=== PATIENT | male | born 1990 | race Caucasian/White ===

== ENCOUNTER 2022-10-10 13:24 | Inpatient (IN) | payer OTHER ==
[~2022-10-10] VITALS: Ht 175.3 cm; Wt 115.7 kg
[2022-10-11 15:00] VITALS: BP 125/69; PULSE 89; RESP 19; RESP 20; TEMP 98.7; O2SAT 98
[2022-10-11] MEDS ORDERED: ACETAMINOPHEN 325 MG TABLET PO PRN (15:00)
[2022-10-11] MEDS ORDERED: OxyCODONE HCL 5 MG IR TABLET PO PRN (15:15)
[2022-10-11] MEDS: GABAPENTIN 300 MG CAPSULE PO SCH ×2 (18:50→21:47)
[2022-10-11] MEDS: MINOCYCLINE HCL 100 MG CAPSULE PO SCH (18:50)
[2022-10-11] MEDS: ACETAMINOPHEN 325 MG TABLET PO SCH (18:53)
[2022-10-11 21:00] VITALS: BP 116/82; PULSE 99; RESP 16; TEMP 98.7; O2SAT 96
[2022-10-11] MEDS: MELATONIN 3 MG TABLET PO PRN (21:47)
[2022-10-11] MEDS: ETHYL ALCOHOL 62% ANTISEPTIC NASAL SANITIZER 0.6 ML AMPUL NASAL SCH (21:47)
[2022-10-11] MEDS: DOCUSATE SODIUM 100 MG CAPSULE PO SCH (21:47)
[2022-10-11 21:55] VITALS: O2SAT 96
[2022-10-12] MEDS: ACETAMINOPHEN 325 MG TABLET PO SCH ×4 (05:25→16:08)
[2022-10-12] MEDS: DOCUSATE SODIUM 100 MG CAPSULE PO SCH ×3 (08:56→21:00)
[2022-10-12] MEDS: ASPIRIN 325 MG TABLET PO SCH (08:56)
[2022-10-12] MEDS: ENOXAPARIN SODIUM 40 MG/0.4 ML PF SYRINGE SQ SCH (08:56)
[2022-10-12] MEDS: GABAPENTIN 300 MG CAPSULE PO SCH ×3 (08:57→20:51)
[2022-10-12] MEDS: MINOCYCLINE HCL 100 MG CAPSULE PO SCH ×2 (08:57→16:07)
[2022-10-12] MEDS: ETHYL ALCOHOL 62% ANTISEPTIC NASAL SANITIZER 0.6 ML AMPUL NASAL SCH ×2 (08:57→20:50)
[2022-10-12] MEDS: AQUAPHOR OINTMENT 50 GM TUBE TP SCH (08:58)
[2022-10-12 09:08] LABS: BASOPHILS % (AUTO) 0.4 % (0.0-2.0); EOSINOPHILS % (AUTO) 2.6 % (1.0-6.0); HEMATOCRIT 37.2 % (41-53); HEMOGLOBIN 12.5 g/dL (13.5-17.5); LYMPHOCYTES # (AUTO) 1.4 K/uL (1.0-4.8); LYMPHOCYTES % (AUTO) 17.3 % (22.0-44.0); MEAN CORPUSCULAR HEMOGLOBIN 31.1 pg (26.0-34.0); MEAN CORPUSCULAR HGB CONC 33.6 G/dL (31.0-37.0); MEAN CORPUSCULAR VOLUME 93 fL (80-100); MONOCYTES # (AUTO) 0.4 K/uL (0.1-1.0); MONOCYTES % (AUTO) 4.7 % (2.0-9.0); NEUTROPHILS # (AUTO) 6.1 K/uL (1.8-7.7); PLATELET COUNT (AUTO) 416 K/uL (150-450); RED BLOOD CELL COUNT(AUTO) 4.02 MIL/uL (4.50-5.90); RED CELL DISTRIBUTION WIDTH 13.7 % (11.5-14.5)
[2022-10-12 09:32] LABS: ALANINE AMINOTRANSFERASE 29 U/L (12-78); ALBUMIN 2.9 g/dL (3.4-5.0); ALKALINE PHOSPHATASE 86 U/L (46-116); ANION GAP 16 mmol/L (8-16); ASPARTATE AMINOTRANSFERASE 32 U/L (15-37); BILIRUBIN,TOTAL 0.9 mg/dL (0.1-1.0); CALCIUM, TOTAL 9.3 mg/dL (8.8-10.5); CARBON DIOXIDE 23 mmol/L (22-29); CHLORIDE 100 mmol/L (98-107); CREATININE 0.92 mg/dL (0.60-1.30); GLOMERULAR FILTR. RATE CALC > 60 mL/min (>60); GLUCOSE,RANDOM 167 mg/dL (70-110); SODIUM SERUM 139 mmol/L (136-145); TOTAL PROTEIN, SERUM 7.2 g/dL (6.4-8.2)
[2022-10-12 09:44] VITALS: BP 103/63; PULSE 98; RESP 20; TEMP 98.3; O2SAT 98
[2022-10-12] MEDS: MELATONIN 3 MG TABLET PO PRN (20:51)
[2022-10-12 21:00] VITALS: BP 126/66; PULSE 95; RESP 19; TEMP 98.3; O2SAT 97
[2022-10-13] MEDS: ACETAMINOPHEN 325 MG TABLET PO SCH ×5 (00:27→23:33)
[2022-10-13] MEDS: MINOCYCLINE HCL 100 MG CAPSULE PO SCH ×2 (07:38→16:07)
[2022-10-13 09:02] VITALS: BP 125/77; PULSE 84; RESP 19; TEMP 97.8; O2SAT 98
[2022-10-13] MEDS: MULTIVITAMINS WITH MINERALS, THERAPEUTIC TABLET PO SCH (09:02)
[2022-10-13] MEDS: ASPIRIN 325 MG TABLET PO SCH (09:02)
[2022-10-13] MEDS: ENOXAPARIN SODIUM 40 MG/0.4 ML PF SYRINGE SQ SCH (09:02)
[2022-10-13] MEDS: AQUAPHOR OINTMENT 50 GM TUBE TP SCH (09:02)
[2022-10-13] MEDS: GABAPENTIN 300 MG CAPSULE PO SCH ×3 (09:02→21:55)
[2022-10-13] MEDS: ETHYL ALCOHOL 62% ANTISEPTIC NASAL SANITIZER 0.6 ML AMPUL NASAL SCH ×2 (09:03→21:54)
[2022-10-13 21:00] VITALS: BP 120/74; PULSE 90; RESP 20; TEMP 98.3; O2SAT 99
[2022-10-13] MEDS: DOCUSATE SODIUM 100 MG CAPSULE PO SCH (21:55)
[2022-10-14] MEDS: MELATONIN 3 MG TABLET PO PRN ×2 (00:16→21:30)
[2022-10-14] MEDS ORDERED: ASPI-989 PO (03:57)
[2022-10-14] MEDS ORDERED: GABA-1181 PO (03:57)
[2022-10-14] MEDS ORDERED: MULT-1239 PO (03:57)
[2022-10-14] MEDS: ACETAMINOPHEN 325 MG TABLET PO SCH ×3 (06:56→17:51)
[2022-10-14] MEDS: MINOCYCLINE HCL 100 MG CAPSULE PO SCH ×2 (07:42→17:51)
[2022-10-14] MEDS: DOCUSATE SODIUM 100 MG CAPSULE PO SCH ×2 (09:45→21:29)
[2022-10-14] MEDS: MULTIVITAMINS WITH MINERALS, THERAPEUTIC TABLET PO SCH (09:45)
[2022-10-14] MEDS: ENOXAPARIN SODIUM 40 MG/0.4 ML PF SYRINGE SQ SCH (09:45)
[2022-10-14] MEDS: ASPIRIN 325 MG TABLET PO SCH (09:45)
[2022-10-14 09:46] VITALS: BP 119/64; PULSE 77; RESP 19; TEMP 98.4; O2SAT 97
[2022-10-14] MEDS: GABAPENTIN 300 MG CAPSULE PO SCH ×3 (09:46→21:29)
[2022-10-14] MEDS: AQUAPHOR OINTMENT 50 GM TUBE TP SCH (09:46)
[2022-10-14] MEDS: ETHYL ALCOHOL 62% ANTISEPTIC NASAL SANITIZER 0.6 ML AMPUL NASAL SCH ×2 (09:47→21:29)
[2022-10-14 20:04] LABS: BASOPHILS % (AUTO) 0.6 % (0.0-2.0); EOSINOPHILS % (AUTO) 3.3 % (1.0-6.0); HEMATOCRIT 38.8 % (41-53); HEMOGLOBIN 13.1 g/dL (13.5-17.5); LYMPHOCYTES # (AUTO) 2.1 K/uL (1.0-4.8); LYMPHOCYTES % (AUTO) 23.6 % (22.0-44.0); MEAN CORPUSCULAR HEMOGLOBIN 30.9 pg (26.0-34.0); MEAN CORPUSCULAR HGB CONC 33.7 G/dL (31.0-37.0); MEAN CORPUSCULAR VOLUME 92 fL (80-100); MONOCYTES # (AUTO) 0.7 K/uL (0.1-1.0); MONOCYTES % (AUTO) 7.8 % (2.0-9.0); NEUTROPHILS # (AUTO) 5.7 K/uL (1.8-7.7); NEUTROPHILS % (AUTO) 64.7 % (40.0-70.0); PLATELET COUNT (AUTO) 479 K/uL (150-450); RED BLOOD CELL COUNT(AUTO) 4.23 MIL/uL (4.50-5.90); RED CELL DISTRIBUTION WIDTH 13.2 % (11.5-14.5)
[2022-10-14 20:48] LABS: ANION GAP 9 mmol/L (8-16); CALCIUM, TOTAL 9.1 mg/dL (8.8-10.5); CARBON DIOXIDE 23 mmol/L (22-29); CHLORIDE 102 mmol/L (98-107); CREATININE 1.01 mg/dL (0.60-1.30); GLOMERULAR FILTR. RATE CALC > 60 mL/min (>60); GLUCOSE,RANDOM 137 mg/dL (70-110); POTASSIUM 3.4 mmol/L (3.5-5.1); SODIUM SERUM 134 mmol/L (136-145)
[2022-10-14 20:53] LABS: ALANINE AMINOTRANSFERASE 34 U/L (12-78); ALBUMIN 3.2 g/dL (3.4-5.0); ALKALINE PHOSPHATASE 92 U/L (46-116); ASPARTATE AMINOTRANSFERASE 30 U/L (15-37); BILIRUBIN,TOTAL 0.5 mg/dL (0.1-1.0); TOTAL PROTEIN, SERUM 7.5 g/dL (6.4-8.2)
[2022-10-14] MEDS ORDERED: POTASSIUM CHLORIDE 20 MEQ ER TABLET PO ONE (21:00)
[2022-10-14] MEDS: FAMOTIDINE 20 MG TABLET PO SCH (21:29)
[2022-10-15 01:00] LABS: APPEARANCE,URINE CLEAR (CLEAR); BILIRUBIN,URINE NEGATIVE (NEGATIVE); GLUCOSE, URINE (UA) NEGATIVE (NEGATIVE); KETONES,URINE NEGATIVE (NEGATIVE); LEUKOCYTE ESTERASE ,URINE NEGATIVE (NEGATIVE); NITRATE,URINE NEGATIVE (NEGATIVE); OCCULT BLOOD,URINE LARGE (NEGATIVE); PROTEIN,URINE NEGATIVE (NEGATIVE); UROBILINOGEN,URINE <=1.0 mg/dL (<=1.0)
[2022-10-15 01:12] LABS: BACTERIA,URINE None Seen /HPF (None Seen); SQUAMOUS EPITHELIAL CELL,UR None Seen /LPF (None Seen); WBC,URINE None Seen /HPF (0-5)
[2022-10-15 02:36] VITALS: BP 132/73; PULSE 94; RESP 18; TEMP 98.9; O2SAT 97
[2022-10-15] MEDS: ACETAMINOPHEN 325 MG TABLET PO SCH ×4 (05:20→17:17)
[2022-10-15] MEDS: FAMOTIDINE 20 MG TABLET PO SCH ×2 (07:58→20:31)
[2022-10-15] MEDS: DOCUSATE SODIUM 100 MG CAPSULE PO SCH ×2 (07:58→20:31)
[2022-10-15] MEDS: ASPIRIN 325 MG TABLET PO SCH (07:58)
[2022-10-15] MEDS: ENOXAPARIN SODIUM 40 MG/0.4 ML PF SYRINGE SQ SCH (07:58)
[2022-10-15] MEDS: MULTIVITAMINS WITH MINERALS, THERAPEUTIC TABLET PO SCH (07:59)
[2022-10-15] MEDS: MINOCYCLINE HCL 100 MG CAPSULE PO SCH ×2 (07:59→16:18)
[2022-10-15] MEDS: GABAPENTIN 300 MG CAPSULE PO SCH ×3 (07:59→20:31)
[2022-10-15] MEDS: ETHYL ALCOHOL 62% ANTISEPTIC NASAL SANITIZER 0.6 ML AMPUL NASAL SCH ×2 (07:59→20:31)
[2022-10-15] MEDS: AQUAPHOR OINTMENT 50 GM TUBE TP SCH (08:02)
[2022-10-15 08:54] LABS: BASOPHILS % (AUTO) 0.5 % (0.0-2.0); EOSINOPHILS % (AUTO) 4.4 % (1.0-6.0); HEMATOCRIT 37.8 % (41-53); HEMOGLOBIN 12.4 g/dL (13.5-17.5); LYMPHOCYTES % (AUTO) 28.2 % (22.0-44.0); MEAN CORPUSCULAR HEMOGLOBIN 30.3 pg (26.0-34.0); MEAN CORPUSCULAR HGB CONC 32.9 G/dL (31.0-37.0); MEAN CORPUSCULAR VOLUME 92 fL (80-100); MONOCYTES # (AUTO) 0.5 K/uL (0.1-1.0); MONOCYTES % (AUTO) 6.4 % (2.0-9.0); NEUTROPHILS # (AUTO) 4.3 K/uL (1.8-7.7); NEUTROPHILS % (AUTO) 60.5 % (40.0-70.0); PLATELET COUNT (AUTO) 440 K/uL (150-450); RED BLOOD CELL COUNT(AUTO) 4.11 MIL/uL (4.50-5.90); RED CELL DISTRIBUTION WIDTH 13.6 % (11.5-14.5)
[2022-10-15 09:00] VITALS: BP 118/71; PULSE 74; RESP 18; TEMP 98.1; O2SAT 97
[2022-10-15 09:00] LABS: POTASSIUM 4.2 mmol/L (3.5-5.1)
[2022-10-15 09:29] LABS: HEMOGLOBIN A1C 5.6 % (3.8-5.6)
[2022-10-15] MEDS: MELATONIN 3 MG TABLET PO PRN (20:31)
[2022-10-15 21:05] VITALS: BP 113/75; PULSE 70; RESP 18; TEMP 98.3; O2SAT 97
[2022-10-16] MEDS: ACETAMINOPHEN 325 MG TABLET PO SCH ×4 (06:00→17:13)
[2022-10-16] MEDS: ENOXAPARIN SODIUM 40 MG/0.4 ML PF SYRINGE SQ SCH (07:58)
[2022-10-16] MEDS: MINOCYCLINE HCL 100 MG CAPSULE PO SCH ×2 (08:02→16:15)
[2022-10-16] MEDS: FAMOTIDINE 20 MG TABLET PO SCH ×2 (08:02→20:54)
[2022-10-16] MEDS: ASPIRIN 325 MG TABLET PO SCH (08:02)
[2022-10-16] MEDS: DOCUSATE SODIUM 100 MG CAPSULE PO SCH ×2 (08:02→20:53)
[2022-10-16] MEDS: GABAPENTIN 300 MG CAPSULE PO SCH ×3 (08:02→20:53)
[2022-10-16] MEDS: MULTIVITAMINS WITH MINERALS, THERAPEUTIC TABLET PO SCH (08:02)
[2022-10-16] MEDS: ETHYL ALCOHOL 62% ANTISEPTIC NASAL SANITIZER 0.6 ML AMPUL NASAL SCH ×2 (08:03→20:53)
[2022-10-16] MEDS: AQUAPHOR OINTMENT 50 GM TUBE TP SCH ×2 (08:13→10:00)
[2022-10-16 09:02] VITALS: BP 117/79; PULSE 87; RESP 20; TEMP 98.3; O2SAT 96
[2022-10-16] MEDS ORDERED: ASPI-1515 PO (16:04)
[2022-10-16] MEDS: MELATONIN 3 MG TABLET PO PRN (22:17)
[2022-10-16 22:41] VITALS: BP 138/77; PULSE 90; RESP 19; TEMP 98.1; O2SAT 99
[2022-10-17] MEDS: ACETAMINOPHEN 325 MG TABLET PO SCH ×5 (00:13→23:58)
[2022-10-17 08:00] VITALS: BP 105/70; PULSE 71; RESP 19; TEMP 97.9; O2SAT 96
[2022-10-17] MEDS: ETHYL ALCOHOL 62% ANTISEPTIC NASAL SANITIZER 0.6 ML AMPUL NASAL SCH ×2 (08:16→21:27)
[2022-10-17] MEDS: MINOCYCLINE HCL 100 MG CAPSULE PO SCH ×2 (08:16→17:51)
[2022-10-17] MEDS: ASPIRIN 325 MG TABLET PO SCH (08:16)
[2022-10-17] MEDS: DOCUSATE SODIUM 100 MG CAPSULE PO SCH ×2 (08:17→21:27)
[2022-10-17] MEDS: MULTIVITAMINS WITH MINERALS, THERAPEUTIC TABLET PO SCH (08:17)
[2022-10-17] MEDS: GABAPENTIN 300 MG CAPSULE PO SCH ×3 (08:17→21:27)
[2022-10-17] MEDS: FAMOTIDINE 20 MG TABLET PO SCH ×2 (08:17→21:27)
[2022-10-17] MEDS: ENOXAPARIN SODIUM 40 MG/0.4 ML PF SYRINGE SQ SCH (08:17)
[2022-10-17] MEDS ORDERED: SODIUM CL IRRIG SOLN BOTTLE 250 ML IRRIG ONE (08:55)
[2022-10-17 21:27] VITALS: BP 124/69; PULSE 98; RESP 19; TEMP 98.1; O2SAT 97
[2022-10-17] MEDS: MELATONIN 3 MG TABLET PO PRN (22:24)
[2022-10-18] MEDS: ACETAMINOPHEN 325 MG TABLET PO SCH ×4 (06:00→23:09)
[2022-10-18] MEDS: ASPIRIN 325 MG TABLET PO SCH (08:31)
[2022-10-18] MEDS: MINOCYCLINE HCL 100 MG CAPSULE PO SCH ×2 (08:31→17:07)
[2022-10-18] MEDS: ENOXAPARIN SODIUM 40 MG/0.4 ML PF SYRINGE SQ SCH (08:31)
[2022-10-18] MEDS: FAMOTIDINE 20 MG TABLET PO SCH ×2 (08:32→20:16)
[2022-10-18] MEDS: DOCUSATE SODIUM 100 MG CAPSULE PO SCH ×2 (08:32→20:15)
[2022-10-18] MEDS: GABAPENTIN 300 MG CAPSULE PO SCH ×3 (08:32→20:16)
[2022-10-18] MEDS: ETHYL ALCOHOL 62% ANTISEPTIC NASAL SANITIZER 0.6 ML AMPUL NASAL SCH ×2 (08:32→20:15)
[2022-10-18] MEDS: MULTIVITAMINS WITH MINERALS, THERAPEUTIC TABLET PO SCH (09:19)
[2022-10-18] MEDS: AQUAPHOR OINTMENT 50 GM TUBE TP SCH (09:19)
[2022-10-18 09:22] VITALS: BP 121/70; PULSE 84; RESP 18; TEMP 98.3; O2SAT 96
[2022-10-18] MEDS: MELATONIN 3 MG TABLET PO PRN (20:15)
[2022-10-18 21:00] VITALS: BP 124/67; PULSE 90; RESP 19; TEMP 98.1; O2SAT 97
[2022-10-19] MEDS: ACETAMINOPHEN 325 MG TABLET PO SCH ×3 (05:50→18:05)
[2022-10-19 08:00] VITALS: BP 126/86; PULSE 81; RESP 19; TEMP 98.4; O2SAT 97
[2022-10-19] MEDS: GABAPENTIN 300 MG CAPSULE PO SCH ×3 (08:03→21:13)
[2022-10-19] MEDS: MULTIVITAMINS WITH MINERALS, THERAPEUTIC TABLET PO SCH (08:03)
[2022-10-19] MEDS: MINOCYCLINE HCL 100 MG CAPSULE PO SCH ×2 (08:03→16:35)
[2022-10-19] MEDS: FAMOTIDINE 20 MG TABLET PO SCH ×2 (08:03→21:13)
[2022-10-19] MEDS: DOCUSATE SODIUM 100 MG CAPSULE PO SCH ×2 (08:03→21:13)
[2022-10-19] MEDS: ETHYL ALCOHOL 62% ANTISEPTIC NASAL SANITIZER 0.6 ML AMPUL NASAL SCH ×2 (08:03→21:28)
[2022-10-19] MEDS: AQUAPHOR OINTMENT 50 GM TUBE TP SCH (08:07)
[2022-10-19] MEDS: ENOXAPARIN SODIUM 40 MG/0.4 ML PF SYRINGE SQ SCH (09:00)
[2022-10-19] MEDS ORDERED: ASPI-1026 PO (10:43)
[2022-10-19] MEDS ORDERED: GABA-1181 PO (10:43)
[2022-10-19] MEDS ORDERED: MULT-1239 PO (10:43)
[2022-10-19] MEDS ORDERED: MINO100 PO (10:43)
[2022-10-19] MEDS ORDERED: ACET325T51 PO (10:43)
[2022-10-19] MEDS: ASPIRIN 325 MG TABLET PO SCH (12:17)
[2022-10-19 22:18] VITALS: BP 114/82; PULSE 99; RESP 18; TEMP 98.1; O2SAT 97
[2022-10-19] MEDS: MELATONIN 3 MG TABLET PO PRN (22:53)
[2022-10-20] MEDS: ACETAMINOPHEN 325 MG TABLET PO SCH ×2 (06:00)
[2022-10-20] MEDS: ENOXAPARIN SODIUM 40 MG/0.4 ML PF SYRINGE SQ SCH (08:07)
[2022-10-20] MEDS: MULTIVITAMINS WITH MINERALS, THERAPEUTIC TABLET PO SCH (08:08)
[2022-10-20] MEDS: FAMOTIDINE 20 MG TABLET PO SCH (08:08)
[2022-10-20] MEDS: MINOCYCLINE HCL 100 MG CAPSULE PO SCH (08:08)
[2022-10-20] MEDS: ASPIRIN 325 MG TABLET PO SCH (08:08)
[2022-10-20] MEDS: ETHYL ALCOHOL 62% ANTISEPTIC NASAL SANITIZER 0.6 ML AMPUL NASAL SCH (08:08)
[2022-10-20] MEDS: GABAPENTIN 300 MG CAPSULE PO SCH (08:08)
[2022-10-20] MEDS: DOCUSATE SODIUM 100 MG CAPSULE PO SCH (08:08)
[2022-10-20] MEDS: AQUAPHOR OINTMENT 50 GM TUBE TP SCH (08:11)
[2022-10-20 09:38] VITALS: BP 120/73; PULSE 79; RESP 18; TEMP 98; O2SAT 98
== END 2022-10-20 14:55 | disposition home or self-care (01) | DRG 863 ==
LOC: 2WR 10-11 13:33
PROVIDERS: ADMIT Physical Medicine & Rehabilitation; ATTEND Physical Medicine & Rehabilitation
DX: T81.41XA Infection following a procedure, superficial incisional surgical site, initial encounter (principal); E46 Unspecified protein-calorie malnutrition; E66.9 Obesity, unspecified; D64.9 Anemia, unspecified; R73.9 Hyperglycemia, unspecified; E87.6 Hypokalemia; R26.9 Unspecified abnormalities of gait and mobility; R53.81 Other malaise; Y83.8 Other surgical procedures as the cause of abnormal reaction of the patient, or of later complication, without mention of misadventure at the time of the procedure; Y92.89 Other specified places as the place of occurrence of the external cause; Z68.37 Body mass index [BMI] 37.0-37.9, adult; Z72.0 Tobacco use; Z79.82 Long term (current) use of aspirin; Z79.899 Other long term (current) drug therapy
CPT/HCPCS: 80053; 81001; 83036; 84132; 85025; 87081; 97110; 97112; 97116; 97162; 97167; 97530; 97535; 99285; 99366; J1650